=== PATIENT | female | born 1985 | race Caucasian/White ===

== ENCOUNTER 2016-11-13 15:36 | Inpatient (IN) | payer BC, MEDICAID ==
[~2016-11-13] VITALS: Ht 175.3 cm; Wt 122.3 kg
[~2016-11-13 15:36] MED LIST: CIPR500T4 PO; CYCL-319 PO; NAPR-260 PO; NAPR-688 PO; OXYC-281 PO
--- NOTE | 2016-11-13 16:07 | TRIAGE ---
OB Triage Datetime Report Generated by CPN: 11/13/2016 16:07 Datetime: 11/13/2016 16:06 EGA: 38.3 Datetime: 11/13/2016 15:40 Assessment Type: Triage Maternal Assessment Level of Consciousness: Fully Conscious DTR's/Clonus: DTRs 2+; No Clonus Headache: Denies Blurred Vision: No Respiratory Effort: Unlabored; Regular Rhythm; Equal Expansion Breath Sounds, Left: Clear and Equal Breath Sounds, Right: Clear and Equal Nausea/Vomiting: Denies RUQ Epigastric Pain: Denies Facial Edema: None Fall Risk Assessment History of Falling: (0) No Secondary Diagnosis: (0) No Ambulatory Aid: (0) Bedrest/Nurse Assist IV Therapy: (0) No Gait: (0) Normal/Bedrest/Immobile Mental Status: (0) Oriented to Own Ability Fall Score: 0 Fall Risk Score Definition: No Risk: No action required Datetime: 11/13/2016 15:30 Time of Arrival: 11/13/2016 15:30 Arrived By: Ambulatory Arrived From: Home Chief Complaint: PT CAME IN C/O SROM AT 1330, STATES CLEAR FLUID Movement: Present Contractions: Denies/Absent Rupture of Membranes: Ruptured Vaginal Discharge: Denies Recent Sexual Intercouse: Denies Abdominal Trauma: Not Applicable Patient Complaints: Other Additional Patient Complaints: NONE Time Provider Notified: 11/13/2016 16:00 Provider Notified: EMERY Initial Plan: JESICA AND CAESAR
[2016-11-13] MEDS ORDERED: LACTATED RINGER'S 1,000 ML IV SCH (17:20)
[2016-11-13] MEDS ORDERED: MISOPROSTOL 200 MCG TAB PR PRN ×2 (17:30→22:30)
[2016-11-13] MEDS ORDERED: OXYTOCIN 30 UNITS/LR 500 ML IV SCH ×4 (17:30→22:30)
[2016-11-13] MEDS ORDERED: AMPICILLIN 2 GM/NS (PMX) 100 ML IV ONE (17:30)
[2016-11-13] MEDS ORDERED: CARBOPROST 250 MCG INJ IM PRN ×2 (17:30→22:30)
[2016-11-13] MEDS ORDERED: LIDOCAINE 1% (MPF) 30 ML INJ INJ PRN ×2 (17:30→22:30)
[2016-11-13] MEDS ORDERED: IBUPROFEN 600 MG TAB PO PRN ×2 (17:30→22:30)
[2016-11-13] MEDS ORDERED: OXYTOCIN 30 UNITS/LR 500 ML IV PRN ×2 (17:30→22:30)
[2016-11-13 17:42] LABS: BASOPHILS % 0.4 % (0.0-2.0); EOSINOPHILS % 0.2 % (0.0-7.0); HEMATOCRIT 36.5 % (37.0-47.0); HEMOGLOBIN 12.5 g/dl (12.0-16.0); LYMPHOCYTES # 1.6 10^3/ul (0.8-2.9); LYMPHOCYTES % 14.9 % (15.0-51.0); MEAN CORPUSCULAR HEMOGLOBIN 29.7 pg (29.0-33.0); MEAN CORPUSCULAR HGB CONC 34.3 g/dl (32.0-37.0); MEAN CORPUSCULAR VOLUME 86.7 fl (82.0-101.0); MEAN PLATELET VOLUME 9.6 fl (7.4-10.4); MONOCYTE # 0.5 10^3/ul (0.3-0.9); MONOCYTES % 5.2 % (0.0-11.0); NEUTROPHIL # 8.4 10^3/ul (1.6-7.5); NEUTROPHILS % 79.3 % (39.0-77.0); PLATELET COUNT 267 10^3/UL (140-440); RED BLOOD COUNT 4.21 10^6/ul (4.20-5.40); RED CELL DISTRIBUTION WIDTH 13.5 % (11.5-14.5); UNCORRECTED WBC 10.6 10^3/ul (4.8-10.8); WHITE BLOOD COUNT 10.6 10^3/ul (4.8-10.8)
[2016-11-13 17:43] LABS: CONDITION 1
[2016-11-13] MEDS ORDERED: PREN-99 PO (17:45)
[2016-11-13 17:48] LABS: INR 0.98
[2016-11-13 17:49] LABS: PARTIAL THROMBOPLASTIN TIME 25.3 Sec (25.0-35.0)
[2016-11-13 17:51] VITALS: BP 119/64; PULSE 91; RESP 18
[2016-11-13 17:53] VITALS: Ht 175.3 cm; Wt 122.3 kg
[2016-11-13] MEDS ORDERED: LACTATED RINGER'S 1,000 ML IV PRN ×2 (18:00→22:00)
--- NOTE | 2016-11-13 18:07 | RADRPT ---
PROCEDURE: US OB. CLINICAL INDICATION: Size and dates , labor pain TECHNIQUE: Multiple sonographic images of the pelvis and gravid uterus were obtained. The images were reviewed on a PACS workstation. COMPARISON: No prior studies are available for comparison. FINDINGS: There is a single viable intrauterine gestation. Cardiac activity is present with 159 beats per min mita. There is a vertex presentation. The placenta is anterior. There is no evidence for an abruption or placenta previa. Measurements were made in order to determine age. The results are as follows: BPD =9.3 cm HC =33.4 cm AC =40.1 cm FL =7.8 cm Estimated gestational age of approximately 38 weeks and 5 days based on ultrasound measurements. Clinical age: 38 weeks and 3 days. The estimated date of delivery is 11/22/16, based on ultrasound measurements. The EFW = 4476 g, >97%, based on LMP age. RPTAT: AA IMPRESSION: Single viable intrauterine gestation of approximately 38 weeks and 5 days based on ultrasound measu rements. .Roverto Elizabeth MD, MD Date Time Electronically viewed and signed by .Roverto Elizabeth MD, on 11/13/2016 18:07 .S/
[2016-11-13 18:36] LABS: BARBITURATES Negative (NEGATIVE); BENZODIAZEPINES Negative (NEGATIVE); CANNABINOIDS Negative (NEGATIVE); COCAINE Negative (NEGATIVE); OPIATES Negative (NEGATIVE)
[2016-11-13] MEDS ORDERED: AMPICILLIN 1 GM/NS (PMX) 50 ML IV SCH (21:30)
--- NOTE | 2016-11-13 21:52 | HP ---
Date/Time of Note Date/Time of Note DATE: 11/13/16 TIME: 21:37 OB - History Hx of Present Free Text/Dictation Patient is a 31 years old with IUP at 38 weeks and 3 days with care with Dr. Mosquera presented due to ROM this evening. Has a History of section in prior due to GDM A2 and macrosomia at [facility] in last in 2009. She requests TOLAC. She denies any medical complications in current as well as GDM. Per patient her course was unremarkable. Her GBS status is unknown. She does not feel the baby larger in current . Her records unavailable. Her op report of prior section reviewed and showed LTCS : 4 Para: 2 Spontaneous : 1 Care: Other (No records available at this time.) Obstetrical Complications: None (Patient denies any complications in current ) Other Concerns: Obesity Past Family/Social History * Past Medical, Surgical, Family and Obstetric Histories reviewed from chart. OB Admission Exam Vital Signs Vital Signs Vital Signs Date Time Temp Pulse Resp B/P Pulse Ox O2 Delivery O2 Flow Rate FiO2 11/13/16 17:51 98.2 91 18 119/64 Room Air Physical Exam HEENT: WNL Heart: Rhythm Normal Lungs: Clear Abdomen: WNL Extremities: Normal Cervical Dilatation: 2cm Effacement: 75% Station: -1 Membranes: Ruptured Amniotic Fluid: Clear Heart Rate: 130's Accelerations: Accelerations Present Decelerations: No Decelerations Varibility: Moderate Contractions on Admission: 6-10 Minutes Apart Intensity: Moderate Last 72 hours Lab Results CBC & BMP 11/13/16 15:50 Hemoglobin A1C Test 11/13/16 15:50 Hemoglobin A1c 6.7 H OB Assessment/Plan Reason for admission: active labor Other Assessment: IUP at 38 weeks and 3 days History of prior section. LTCS , documented scar noted in reviewing operative report at [place] pre [facility] section due to macrosomia due to GDM A2 Denies any history of GDM in current EFW: 2072-9467 grams by vanna Consider ultrasound for EFW. discussed with the patient about section in case of failure to progress, suspected macrosomia noted in us, or any other obstetrical indications She understands that will not consider labor augmentation in case of Dystocia or failure to progress if TOLAC criteria met Discussed about risks of TOLAC including risk for uterine rupture and risk for maternal and morbidity and mortality in this case, as well as risk for Emergency section which even does not eliminat the risk of damage to the fetus and mother including risk for CP and long and short term morbidity and mortality as well as risk for Blood transfusion in case of uterine rupture and transfusion risks as well discussed with the patient. Obtain labs Keep patient NPO Follow up with ultrasound GBS prophylaxis This case discussed with upcoming laborist , Dr. Hurley for follow up of above studies including ultraound and reevaluate for candidacy for TOLAC. URIEL SIFUENTES MD Nov 13, 2016 21:51
[2016-11-13] MEDS ORDERED: FENTAnyl 2MCG/ML-ROPIV 0.2% 100 ML ONE (21:54)
[2016-11-13] MEDS: LACTATED RINGER'S 1,000 ML IV SCH (22:12)
[2016-11-13] MEDS ORDERED: METHYLERGONOVINE 0.2 MG INJ IM PRN (22:30)
[2016-11-14] MEDS ORDERED: TERBUTALINE 1 ML ONE (00:20)
[2016-11-14] MEDS ORDERED: TERBUTALINE 1 MG/ML INJ SC ONE (00:30)
[2016-11-14] MEDS ORDERED: AMPICILLIN 1 GM/NS (PMX) 50 ML IV SCH (01:30)
[2016-11-14] MEDS: LACTATED RINGER'S 1,000 ML IV SCH (02:24)
[2016-11-14] MEDS ORDERED: OXYTOCIN 30 UNITS/LR 500 ML IV SCH (03:20)
[2016-11-14] MEDS ORDERED: LACTATED RINGER'S 1,000 ML IV* SCH (03:20)
--- NOTE | 2016-11-14 03:29 | LDN ---
Date/Time of Note Date/Time of Note DATE: 11/14/16 TIME: 03:26 Delivery Summary of a viable baby boy weighing 4175 grams or 9# 3 oz, 20" long and with Apgars of 9/9. Placenta Delivered: Spontaneously, Intact & Complete Meconium: none Perineum intact?: No Perineal laceration: 1 Perineal laceration repair: First degree laceration repaired with 2-0 chromic. Anesthesia type: Epidural Estimated blood loss: 350 Sponge & Needle done & correct: Yes All needle counts correct: Yes Any foreign bodies felt in the: No (vagina) Problems: Infant Delivery Information Sex Sex: male Apgars 1 Minute: 9 5 Minute: 9 Suctioning Nose & mouth suctioned at meera: No Delee suction performed: No Umbilical Cord Umbilical cord with: 3 Vessels Cord presentations: no nuchal cord Cord Blood was obtained: Yes Mother & Baby Disposition Disposition Mom & Baby to Maternity; Good: Yes Baby to NICU: No PRANEETH WATERS MD Nov 14, 2016 03:29
[2016-11-14] MEDS ORDERED: METHYLERGONOVINE 0.2 MG INJ IM PRN (03:30)
[2016-11-14] MEDS ORDERED: OXYTOCIN 30 UNITS/LR 500 ML IV PRN (03:30)
[2016-11-14] MEDS ORDERED: MISOPROSTOL 200 MCG TAB PR PRN (03:30)
[2016-11-14] MEDS ORDERED: BENZOCAINE 20% 56 ML SPRAY TOP PRN (03:30)
[2016-11-14] MEDS ORDERED: CARBOPROST 250 MCG INJ IM PRN (03:30)
[2016-11-14] MEDS ORDERED: LANOLIN 7 GM TUBE TOP PRN (03:30)
[2016-11-14] MEDS ORDERED: OXYCODONE/ASPIRIN (4.88/325) TAB PO PRN (03:30)
[2016-11-14 05:15] VITALS: BP 127/82; PULSE 101; RESP 18
--- NOTE | 2016-11-14 05:18 | DELSUM ---
Delivery Summary A-C Datetime Report Generated by CPN: 11/14/2016 05:18 DELIVERY PERSONNEL Credit Collections Clerk: Luci Leija MATERNAL INFORMATION Delivery Anesthesia: Epidural Medications in Delivery: 30 UNITS PITOCIN IN LR 500ML BOLUS Placenta Cultured: No Maternal Complications: None RN Comments: EBL-350ML LABOR SUMMARY EDC: 11/24/2016 00:00 No. Babies in Womb: 1 Attempted: Yes Labor Anesthesia: Epidural LABOR INFORMATION Reason for Induction: Not Applicable Onset of Labor: 11/13/2016 13:30 Complete Dilatation: 11/14/2016 02:31 Oxytocin: N/A Group B Beta Strep: Done, Result Unknown Antibiotics # of Doses: 3 Antibiotics Time of Last Dose: 11/14/16 @0127 Steroids Given: None Reason Steroids Not Administered: Not Applicable MEMBRANES Membranes Rupture Method: Spontaneous Rupture of Membranes: 11/13/2016 13:30 Length of Rupture (hr): 13.23 Amniotic Fluid Color: Clear Amniotic Fluid Amount: Moderate Amniotic Fluid Odor: Normal STAGES OF LABOR Stage 1 hr: 13 Stage 1 min: 1 Stage 2 hr: 0 Stage 2 min: 13 Stage 3 hr: 0 Stage 3 min: 10 Total Time in Labor hr: 13 Total Time in Labor min: 24 VAGINAL DELIVERY Episiotomy: None Laceration Extension: First Degree Laceration Type: Perineal Laceration Repair: Yes Initial Vag Sponge Count: 10 Final Vag Sponge Count: 10 Initial Vag Sharps Count: 1+1 Final Vag Sharps Count: 2 Sponge Count Correct: Yes Sharps Count Correct: Yes Count Comment: +10RAYTEC BABY A INFORMATION Infant Delivery Date/Time: 11/14/2016 02:44 Method of Delivery: Vaginal Method of Delivery: Vaginal Born in Route : No : Successful Forceps: N/A Vacuum Extraction: N/A Shoulder Dystocia : No SHOULDER DYSTOCIA BABY A Infant Delivery Date/Time: 11/14/2016 02:44 PRESENTATION/POSITION BABY A Presentation: Cephalic Presentation: Cephalic Presentation: Cephalic Cephalic Presentation: Vertex Breech Presentation: N/A PLACENTA INFORMATION BABY A Placenta Delivery Time : 11/14/2016 02:54 Placenta Method of Delivery: Spontaneous Placenta Status: Delivered SCORES BABY A Heart Rate 1 min: >100 bpm Resp Effort 1 min: Good Cry Reflex Irritability 1 min: Cough/Sneeze/Pulls Away Muscle Tone 1 min: Active Motion Color 1 min: Body [place], Extremit Blue Resuscitation Effort 1 min: Tactile Stimulation SCORE 1 MIN: 9 Heart Rate 5 min: >100 bpm Resp Effort 5 min: Good Cry Reflex Irritability 5 min: Cough/Sneeze/Pulls Away Muscle Tone 5 min: Active Motion Color 5 min: Body [place], Extremit Blue Resuscitation Effort 5 min: N/A SCORE 5 MIN: 9 INFANT INFORMATION BABY A Gestational Age at Delivery: 38.4 Gestational Status: Early Term- 37- 38.6 Weeks Infant Outcome : Liveborn Condition : Stable Infant Sex: Male Sex: Male IDENTIFICATION/MEDS BABY A ID Band Number: [id number] ID Band Location: Right Leg; Left Arm Sensor Applied: Yes Sensor Number: [id number] Sensor Location : Cord Clamp Vitamin K Given : Not Given Erythromycin Given: Not Given WEIGHT/LENGTH BABY A Infant Birthweight (gm): 4175 Infant Weight (lb): 9 Weight (oz): 3 Length (in): 20.00 Length (cm): 50.80 CORD INFORMATION BABY A No. Cord Vessels: 3 Nuchal Cord : N/A Cord Blood Taken: Yes Banking/Donate Info: N/A Infant Suction: Mouth; Nose ASSESSMENT BABY A Complications: Multiple Variable Decels Physical Findings at Delivery: Within Normal Limits Physical Findings- Other: X1 VOID Infant Respirations: Appears Normal Stock Shaper/ALS Called : No Care By: Tammy DIEGO RN Transferred To: Remains with Mother
--- NOTE | 2016-11-14 05:19 | OPRPT ---
Intraop Record Datetime Report Generated by CPN: 11/14/2016 05:19 Datetime: 11/13/2016 16:06 Food Allergies/Reactions: NONE Latex Allergies/Reactions: No Latex Allergies Datetime: 09/07/2016 09:42 Drug Allergies/Reactions: erythromycin base/MO/HIVES (04/16/2015); sulfamethoxazole/MO/HIVES (04/16); trimethoprim/MO/HIVES (04/16/2015)
--- NOTE | 2016-11-14 05:19 | DELSUM ---
Delivery Summary A-C Datetime Report Generated by CPN: 11/14/2016 05:19 DELIVERY PERSONNEL Warehouse Supervisor [address]Rd Shift: Luci Leija MATERNAL INFORMATION Delivery Anesthesia: Epidural Medications in Delivery: 30 UNITS PITOCIN IN LR 500ML BOLUS Placenta Cultured: No Maternal Complications: None RN Comments: EBL-350ML LABOR SUMMARY EDC: 11/24/2016 00:00 No. Babies in Womb: 1 Attempted: Yes Labor Anesthesia: Epidural LABOR INFORMATION Reason for Induction: Not Applicable Onset of Labor: 11/13/2016 13:30 Complete Dilatation: 11/14/2016 02:31 Oxytocin: N/A Group B Beta Strep: Done, Result Unknown Antibiotics # of Doses: 3 Antibiotics Time of Last Dose: 11/14/16 @0127 Steroids Given: None Reason Steroids Not Administered: Not Applicable MEMBRANES Membranes Rupture Method: Spontaneous Rupture of Membranes: 11/13/2016 13:30 Length of Rupture (hr): 13.23 Amniotic Fluid Color: Clear Amniotic Fluid Amount: Moderate Amniotic Fluid Odor: Normal STAGES OF LABOR Stage 1 hr: 13 Stage 1 min: 1 Stage 2 hr: 0 Stage 2 min: 13 Stage 3 hr: 0 Stage 3 min: 10 Total Time in Labor hr: 13 Total Time in Labor min: 24 VAGINAL DELIVERY Episiotomy: None Laceration Extension: First Degree Laceration Type: Perineal Laceration Repair: Yes Initial Vag Sponge Count: 10 Final Vag Sponge Count: 10 Initial Vag Sharps Count: 1+1 Final Vag Sharps Count: 2 Sponge Count Correct: Yes Sharps Count Correct: Yes Count Comment: +10RAYTEC BABY A INFORMATION Infant Delivery Date/Time: 11/14/2016 02:44 Method of Delivery: Vaginal Method of Delivery: Vaginal Born in Route : No : Successful Forceps: N/A Vacuum Extraction: N/A Shoulder Dystocia : No SHOULDER DYSTOCIA BABY A Infant Delivery Date/Time: 11/14/2016 02:44 PRESENTATION/POSITION BABY A Presentation: Cephalic Presentation: Cephalic Presentation: Cephalic Cephalic Presentation: Vertex Breech Presentation: N/A PLACENTA INFORMATION BABY A Placenta Delivery Time : 11/14/2016 02:54 Placenta Method of Delivery: Spontaneous Placenta Status: Delivered SCORES BABY A Heart Rate 1 min: >100 bpm Resp Effort 1 min: Good Cry Reflex Irritability 1 min: Cough/Sneeze/Pulls Away Muscle Tone 1 min: Active Motion Color 1 min: Body [place], Extremit Blue Resuscitation Effort 1 min: Tactile Stimulation SCORE 1 MIN: 9 Heart Rate 5 min: >100 bpm Resp Effort 5 min: Good Cry Reflex Irritability 5 min: Cough/Sneeze/Pulls Away Muscle Tone 5 min: Active Motion Color 5 min: Body [place], Extremit Blue Resuscitation Effort 5 min: N/A SCORE 5 MIN: 9 INFANT INFORMATION BABY A Gestational Age at Delivery: 38.4 Gestational Status: Early Term- 37- 38.6 Weeks Infant Outcome : Liveborn Condition : Stable Infant Sex: Male Sex: Male IDENTIFICATION/MEDS BABY A ID Band Number: [id number] ID Band Location: Right Leg; Left Arm Sensor Applied: Yes Sensor Number: [id number] Sensor Location : Cord Clamp Vitamin K Given : Not Given Erythromycin Given: Not Given WEIGHT/LENGTH BABY A Infant Birthweight (gm): 4175 Infant Weight (lb): 9 Weight (oz): 3 Length (in): 20.00 Length (cm): 50.80 CORD INFORMATION BABY A No. Cord Vessels: 3 Nuchal Cord : N/A Cord Blood Taken: Yes Banking/Donate Info: N/A Infant Suction: Mouth; Nose ASSESSMENT BABY A Complications: Multiple Variable Decels Physical Findings at Delivery: Within Normal Limits Physical Findings- Other: X1 VOID Infant Respirations: Appears Normal Adult School Teacher/ALS Called : No Care By: Tammy DIEGO RN Transferred To: Remains with Mother
[2016-11-14] MEDS: IBUPROFEN 600 MG TAB PO SCH ×3 (05:40→17:54)
[2016-11-14 05:45] VITALS: BP 126/75; PULSE 98; RESP 18
[2016-11-14 08:30] VITALS: BP 126/77; PULSE 98; RESP 18
[2016-11-14 12:30] VITALS: BP 122/75; PULSE 95; RESP 18
[2016-11-14 16:43] VITALS: BP 118/71; PULSE 100; RESP 18
[2016-11-14 19:40] VITALS: BP 107/67; PULSE 94; RESP 20
[2016-11-15] MEDS: IBUPROFEN 600 MG TAB PO SCH ×4 (00:01→17:45)
[2016-11-15 04:00] VITALS: BP 108/73; PULSE 86; RESP 19
[2016-11-15 08:29] VITALS: BP 102/56; PULSE 94; RESP 17
[2016-11-15 08:30] LABS: BASOPHIL # 0.1 10^3/ul (0.0-0.1); BASOPHILS % 0.4 % (0.0-2.0); CONDITION 1; EOSINOPHILS % 0.3 % (0.0-7.0); HEMATOCRIT 29.2 % (37.0-47.0); LYMPHOCYTES # 1.4 10^3/ul (0.8-2.9); LYMPHOCYTES % 10.6 % (15.0-51.0); MEAN CORPUSCULAR HEMOGLOBIN 30.1 pg (29.0-33.0); MEAN CORPUSCULAR HGB CONC 34.3 g/dl (32.0-37.0); MEAN CORPUSCULAR VOLUME 87.9 fl (82.0-101.0); MEAN PLATELET VOLUME 9.4 fl (7.4-10.4); MONOCYTE # 0.7 10^3/ul (0.3-0.9); MONOCYTES % 5.2 % (0.0-11.0); NEUTROPHIL # 11.1 10^3/ul (1.6-7.5); NEUTROPHILS % 83.5 % (39.0-77.0); PLATELET COUNT 228 10^3/UL (140-440); RED BLOOD COUNT 3.33 10^6/ul (4.20-5.40); RED CELL DISTRIBUTION WIDTH 13.8 % (11.5-14.5); UNCORRECTED WBC 13.3 10^3/ul (4.8-10.8); WHITE BLOOD COUNT 13.3 10^3/ul (4.8-10.8)
[2016-11-15 12:36] LABS: RUBELLA ANTIBODY - IGG 3.36
--- NOTE | 2016-11-15 14:45 | PN ---
Date/Time of Note Date/Time of Note DATE: 11/15/16 TIME: 14:33 OB Subjective Subjective Subjective Post day 1 Patient is doing well, Ambulatory She is afebrile Abdomen is soft , Fundus is firm Moderate amount of lochia Breasts are soft, Nipples are intact No calf tenderness. Perineum is healing well. Breast feeding the new born. Laboratory Tests Test 11/15/16 06:53 Basophils # 0.110^3/ul Basophils % 0.4% Eosinophils # 0.010^3/ul Eosinophils % 0.3% Hematocrit 29.2% Hemoglobin 10.0g/dl Lymphocytes # 1.410^3/ul Lymphocytes % 10.6% Mean Corpuscular Hemoglobin 30.1pg Mean Corpuscular Hemoglobin Concent 34.3g/dl Mean Corpuscular Volume 87.9fl Mean Platelet Volume 9.4fl Monocytes # 0.710^3/ul Monocytes % 5.2% Neutrophils # 11.110^3/ul Neutrophils % 83.5% Nucleated Red Blood Cells # 0.010^3/ul Nucleated Red Blood Cells % 0.0/100WBC Platelet Count 64575^3/UL Red Blood Count 3.3310^6/ul Red Cell Distribution Width 13.8% White Blood Count 13.310^3/ul Current Medications Medications (Trade) Dose Ordered Sig/Marissa Route PRN Reason Start Time Stop Time Status Last Admin Dose Admin Lactated Ringer's 1,000 ml @ 125 mls/hr Q8H IV 11/13/16 17:20 11/13/16 21:57 DC 11/13/16 18:30 Ampicillin 100 ml @ 100 mls/hr ONCE ONCE IV 11/13/16 17:30 11/13/16 21:57 DC 11/13/16 18:37 Ampicillin (Ampicillin 1 Gm/ NS (Pmx)) 50 ml @ 100 mls/hr Q4H IV 11/13/16 21:30 11/13/16 21:58 DC 11/13/16 21:28 Lidocaine 30 ml 30 ml ONCE PRN INJ EPISIOTOMY/TEARING 11/13/16 17:30 11/13/16 21:58 DC Oxytocin/Lactated Ringer's 500 ml @ 125 mls/hr ONCE -MAY REPEAT X1 IV 11/13/16 17:30 11/13/16 21:58 DC Oxytocin/Lactated Ringer's 500 ml @ 125 mls/hr ONCE IV 11/13/16 17:30 11/13/16 21:58 DC Ibuprofen 600 mg 600 mg ONCE PRN PO Mild Pain (Pain Score 1-3) 11/13/16 17:30 11/13/16 21:58 DC Lactated Ringer's 1,000 ml @ 2,000 mls/hr Q30M PRN IV PRE-EPIDURAL BOLUS 11/13/16 18:00 11/13/16 21:57 DC 11/13/16 21:28 Oxytocin/Lactated Ringer's 500 ml @ 0 mls/hr ONCE PRN IV For Hemorrhage Management 11/13/16 17:30 11/13/16 21:57 DC Carboprost Tromethamine (Hemabate) 250 mcg ONCE PRN IM VAGINAL BLEEDING 11/13/16 17:30 11/13/16 21:57 DC Misoprostol 1000 mcg 1,000 mcg ONCE PRN NV VAGINAL BLEEDING 11/13/16 17:30 11/13/16 21:57 DC Fentanyl/ Ropivacaine 100 ml @ ud STK-MED ONCE .ROUTE 11/13/16 21:54 11/13/16 21:55 DC Lactated Ringer's (Lr) 1,000 ml @ 125 mls/hr Q8H IV 11/13/16 22:12 11/14/16 03:25 DC 11/14/16 02:24 Lidocaine 30 ml 30 ml ONCE PRN INJ EPISIOTOMY/TEARING 11/13/16 22:30 11/14/16 03:25 DC Oxytocin/Lactated Ringer's 500 ml @ 125 mls/hr ONCE -MAY REPEAT X1 IV 11/13/16 22:30 11/14/16 03:25 DC 11/14/16 02:54 Oxytocin/Lactated Ringer's 500 ml @ 125 mls/hr ONCE IV 11/13/16 22:30 11/14/16 03:25 DC 11/14/16 03:16 Ibuprofen 600 mg 600 mg ONCE PRN PO Mild Pain (Pain Score 1-3) 11/13/16 22:30 11/14/16 03:25 DC Lactated Ringer's 1,000 ml @ 2,000 mls/hr Q30M PRN IV PRE-EPIDURAL BOLUS 11/13/16 22:00 11/14/16 03:25 DC Oxytocin/Lactated Ringer's 500 ml @ 0 mls/hr ONCE PRN IV For Hemorrhage Management 11/13/16 22:30 11/14/16 03:25 DC Methylergonovine Maleate (Methergine) 0.2 mg ONCE PRN IM VAGINAL BLEEDING 11/13/16 22:30 11/14/16 03:25 DC Carboprost Tromethamine (Hemabate) 250 mcg ONCE PRN IM VAGINAL BLEEDING 11/13/16 22:30 11/14/16 03:25 DC Misoprostol 1000 mcg 1,000 mcg ONCE PRN NV VAGINAL BLEEDING 11/13/16 22:30 11/14/16 03:25 DC Ampicillin (Ampicillin 1 Gm/ NS (Pmx)) 50 ml @ 100 mls/hr Q4H IV 11/14/16 01:30 11/14/16 03:25 DC 11/14/16 01:27 Terbutaline Sulfate 0.25 mg 0.25 mg ONCE ONCE SC 11/14/16 00:30 11/14/16 00:31 DC 11/14/16 00:09 Terbutaline Sulfate 1 ml @ ud STK-MED ONCE .ROUTE 11/14/16 00:20 11/14/16 00:21 DC Oxytocin/Lactated Ringer's 500 ml @ 125 mls/hr Q4H IV 11/14/16 03:20 11/14/16 07:19 DC 11/14/16 07:30 Lactated Ringer's (Lr) 1,000 ml @ 125 mls/hr Q8H IV* 11/14/16 03:20 11/14/16 17:28 DC Ibuprofen (Motrin) 600 mg Q6 PO 11/14/16 06:00 11/15/16 12:49 Oxycodone/Aspirin (Percodan) 1 tab Q3H PRN PO PAIN LEVEL 1-5 11/14/16 03:30 Benzocaine (Dermoplast [place]) 1 spray BEDSIDE MEDICATION PRN TOP HEMORRHOID/EPISIOTMY PAIN 11/14/16 03:30 11/14/16 05:40 Lanolin ([id number]) 1 applic BEDSIDE MEDICATION PRN TOP BEDSIDE FOR HEIKE TO NIPPLES 11/14/16 03:30 11/14/16 05:40 Diphtheria/ Tetanus/Acell Pertussis 0.5 ml 0.5 ml ONCE ONCE IM* 11/16/16 09:00 11/16/16 09:01 Oxytocin/Lactated Ringer's 500 ml @ 0 mls/hr ONCE PRN IV For Hemorrhage Management 11/14/16 03:30 Methylergonovine Maleate (Methergine) 0.2 mg ONCE PRN IM VAGINAL BLEEDING 11/14/16 03:30 Carboprost Tromethamine (Hemabate) 250 mcg ONCE PRN IM VAGINAL BLEEDING 11/14/16 03:30 Misoprostol (Cytotec) 1,000 mcg ONCE PRN NV VAGINAL BLEEDING 11/14/16 03:30 KOKI JOHNSON MD Nov 15, 2016 14:44
[2016-11-15 16:00] VITALS: BP 116/77; PULSE 90; RESP 16
[2016-11-15 19:30] VITALS: BP 112/67; PULSE 96; RESP 19
[2016-11-16] MEDS: IBUPROFEN 600 MG TAB PO SCH ×4 (00:13→17:54)
[2016-11-16 04:00] VITALS: BP 100/60; PULSE 70; RESP 20
[2016-11-16 08:00] VITALS: BP 115/67; PULSE 70; RESP 18
[2016-11-16] MEDS ORDERED: DIPHTH/TET/ACEL PERTUSS (ADULT) 0.5 ML VIAL IM* ONE (09:00)
--- NOTE | 2016-11-16 12:01 | PN ---
Date/Time of Note Date/Time of Note DATE: 11/16/16 TIME: 11:49 OB Subjective Subjective Subjective Denies any complaint, Had a history of depression with suicidal ideation in the past and hospitalized. Per patient she has been off of medication for a long time. Breast feeding, vaginal bleeding in the amount of menses. Has a therapist currently,. She denies any SI/ HI or any other symptoms. She has all resources and states that she knows where to call if she has any symptoms, She states that she is planning to call her therapist in order to make an appt to see her after she discharge from home. Aunt has been very supportive. States that her prior suicidal attempt was about 2 years ago and that was due to her mother's situation. since her mother was abusing drugs and was not arround. She had extensive therapy after that. Breast feeding and bottle feeding. currently denies any depressive symptoms. Declined FLu and Tdap. Vaginal bleeding in the amount of menses. OB Objective Objective Objective GA: A&O, NAD Lungs. CTA bilaterally CV: RRR Abdomen:Soft, not tender. fundus is firm Extremities: + bilateral lower non pitting edema. Breasts: non engorged. non tender. Current Medications Medications (Trade) Dose Ordered Sig/Marissa Route PRN Reason Start Time Stop Time Status Last Admin Dose Admin Lactated Ringer's 1,000 ml @ 125 mls/hr Q8H IV 11/13/16 17:20 11/13/16 21:57 DC 11/13/16 18:30 Ampicillin 100 ml @ 100 mls/hr ONCE ONCE IV 11/13/16 17:30 11/13/16 21:57 DC 11/13/16 18:37 Ampicillin (Ampicillin 1 Gm/ NS (Pmx)) 50 ml @ 100 mls/hr Q4H IV 11/13/16 21:30 11/13/16 21:58 DC 11/13/16 21:28 Lidocaine 30 ml 30 ml ONCE PRN INJ EPISIOTOMY/TEARING 11/13/16 17:30 11/13/16 21:58 DC Oxytocin/Lactated Ringer's 500 ml @ 125 mls/hr ONCE -MAY REPEAT X1 IV 11/13/16 17:30 11/13/16 21:58 DC Oxytocin/Lactated Ringer's 500 ml @ 125 mls/hr ONCE IV 11/13/16 17:30 11/13/16 21:58 DC Ibuprofen 600 mg 600 mg ONCE PRN PO Mild Pain (Pain Score 1-3) 11/13/16 17:30 11/13/16 21:58 DC Lactated Ringer's 1,000 ml @ 2,000 mls/hr Q30M PRN IV PRE-EPIDURAL BOLUS 11/13/16 18:00 11/13/16 21:57 DC 11/13/16 21:28 Oxytocin/Lactated Ringer's 500 ml @ 0 mls/hr ONCE PRN IV For Hemorrhage Management 11/13/16 17:30 11/13/16 21:57 DC Carboprost Tromethamine (Hemabate) 250 mcg ONCE PRN IM VAGINAL BLEEDING 11/13/16 17:30 11/13/16 21:57 DC Misoprostol 1000 mcg 1,000 mcg ONCE PRN DE VAGINAL BLEEDING 11/13/16 17:30 11/13/16 21:57 DC Fentanyl/ Ropivacaine 100 ml @ ud STK-MED ONCE .ROUTE 11/13/16 21:54 11/13/16 21:55 DC Lactated Ringer's (Lr) 1,000 ml @ 125 mls/hr Q8H IV 11/13/16 22:12 11/14/16 03:25 DC 11/14/16 02:24 Lidocaine 30 ml 30 ml ONCE PRN INJ EPISIOTOMY/TEARING 11/13/16 22:30 11/14/16 03:25 DC Oxytocin/Lactated Ringer's 500 ml @ 125 mls/hr ONCE -MAY REPEAT X1 IV 11/13/16 22:30 11/14/16 03:25 DC 11/14/16 02:54 Oxytocin/Lactated Ringer's 500 ml @ 125 mls/hr ONCE IV 11/13/16 22:30 11/14/16 03:25 DC 11/14/16 03:16 Ibuprofen 600 mg 600 mg ONCE PRN PO Mild Pain (Pain Score 1-3) 11/13/16 22:30 11/14/16 03:25 DC Lactated Ringer's 1,000 ml @ 2,000 mls/hr Q30M PRN IV PRE-EPIDURAL BOLUS 11/13/16 22:00 11/14/16 03:25 DC Oxytocin/Lactated Ringer's 500 ml @ 0 mls/hr ONCE PRN IV For Hemorrhage Management 11/13/16 22:30 11/14/16 03:25 DC Methylergonovine Maleate (Methergine) 0.2 mg ONCE PRN IM VAGINAL BLEEDING 11/13/16 22:30 11/14/16 03:25 DC Carboprost Tromethamine (Hemabate) 250 mcg ONCE PRN IM VAGINAL BLEEDING 11/13/16 22:30 11/14/16 03:25 DC Misoprostol 1000 mcg 1,000 mcg ONCE PRN DE VAGINAL BLEEDING 11/13/16 22:30 11/14/16 03:25 DC Ampicillin (Ampicillin 1 Gm/ NS (Pmx)) 50 ml @ 100 mls/hr Q4H IV 11/14/16 01:30 11/14/16 03:25 DC 11/14/16 01:27 Terbutaline Sulfate 0.25 mg 0.25 mg ONCE ONCE SC 11/14/16 00:30 11/14/16 00:31 DC 11/14/16 00:09 [facility] .[facility] 11/14/16 00:20 11/14/16 00:21 DC Oxytocin/Lactated Ringer's 500 ml @ 125 mls/hr Q4H IV 11/14/16 03:20 11/14/16 07:19 DC 11/14/16 07:30 Lactated Ringer's (Lr) 1,000 ml @ 125 mls/hr Q8H IV* 11/14/16 03:20 11/14/16 17:28 DC Ibuprofen (Motrin) 600 mg Q6 PO 11/14/16 06:00 11/16/16 05:33 Oxycodone/Aspirin (Percodan) 1 tab Q3H PRN PO PAIN LEVEL 1-5 11/14/16 03:30 Benzocaine (Dermoplast [place]) 1 spray BEDSIDE MEDICATION PRN TOP HEMORRHOID/EPISIOTMY PAIN 11/14/16 03:30 11/14/16 05:40 Lanolin ([id number]-[id number]) 1 applic BEDSIDE MEDICATION PRN TOP BEDSIDE FOR HEIKE TO NIPPLES 11/14/16 03:30 11/14/16 05:40 Diphtheria/ Tetanus/Acell Pertussis 0.5 ml 0.5 ml ONCE ONCE IM* 11/16/16 09:00 11/16/16 09:01 DC Oxytocin/Lactated Ringer's 500 ml @ 0 mls/hr ONCE PRN IV For Hemorrhage Management 11/14/16 03:30 Methylergonovine Maleate (Methergine) 0.2 mg ONCE PRN IM VAGINAL BLEEDING 11/14/16 03:30 Carboprost Tromethamine (Hemabate) 250 mcg ONCE PRN IM VAGINAL BLEEDING 11/14/16 03:30 Misoprostol (Cytotec) 1,000 mcg ONCE PRN DE VAGINAL BLEEDING 11/14/16 03:30 OB Assessment/Plan Other plan: DC home Follow up at 6 weeks for post check Depression precaution. She received all the information about depression hot line and where to call or to go Follow up NGA after discharged with her therapist and pscyiatrist URIEL SIFUENTES MD Nov 16, 2016 12:00
--- NOTE | 2016-11-16 12:06 | PD.PPDC ---
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 Hererra Paydafter Condition Patient Condition: Good Diet Diet: Resume Regular Diet Activity/Restrictions Activity: Normal Activity Restrictions: Nothing in the Vagina No [place] No Tampons, douche Wound/Drain Care Instructions Additional Instructions: Follow up in 2 and 6 weeks with her OBGYN, Dr.l herrera for depression assessment follow up NGA after discharge from hospital with therapist Please provide all the information packet for post depression and suicidal hot line Follow-up Follow-up with Physician: 2, 6, Week/Weeks Return to clinic for AURIST Instructions: Fever greater than 101 Chills Worsening abdominal pain Excessive Vaginal Bleeding More than 2 pads per hour Unable to tolerate diet OB Instructions: Breast Tenderness Depression Blurried Vision Headache URIEL SIFUENTES MD Nov 16, 2016 12:06
[2016-11-16] MEDS ORDERED: IBUP200C PO (12:08)
[2016-11-16] MEDS ORDERED: LANO28CR TOP (12:08)
--- NOTE | 2016-11-16 12:22 | DS ---
Date/Time of Note Date/Time of Note DATE: 11/16/16 TIME: 12:11 Discharge Summary Admission/Discharge Info Admit Date/Time Nov 13, 2016 at 16:00 Discharge Date/Time Nov 1508/2016 at 12: 11 PM Final Diagnosis S/p TOLAC History of section x 1 IUP at 38 + weeks SROM early labor Desired to Try TOLAC. Counseled about the risks and benefits History of depression. resolved and stable. Consults None Procedures TOLAC Hx of Present Illness 31 years old G P female with at 38 +weeks with care with Dr. Boykin presented after SROM. she had a history of section x 1 and desired to proceed with TOLAC. she was counseled about the risks and benfits. She delivered a viable term baby with no complications. Her post op course was also non complicated. She had history of Mj use in the past at age of 16. Denied using during / her urine drug screen was negative. she was cleared by healthcare social worker. Had also a history of depression in the past about 2 years ago with suicidal attempt. She denies any depression currently. Has been assessed by healthcare social worker by SBQ-R assessment scale and scored 7 that is normal for adult population. She has all the available resources and understands the risk for post depression' Plans to contact her therpist after DC home and set up a follow up appt NGA on PPD #2 she was noted to be stable enough to go home. She was ambulating, tolerated regular diet. Breast feeding, vaginal bleeding minimal and vitals were stable Hospital Course Non complicated Home Meds Active Scripts Ibuprofen* (Ibuprofen*) 200 Mg Capsule, 600 MG PO Q6, #60 CAP 1 Refill Prov:URIEL SIFUENTES MD 11/16/16 Lanolin* (Brm-V-Euktwo*) 28 Gm Cream..g., 1 APPLIC TOP BEDSIDE MEDICATION Y for BEDSIDE FOR HEIKE TO NIPPLES for 30 Days, #3 TUB 2 Refills Prov:URIEL SIFUENTES MD 11/16/16 Reported Medications Vit #76/Iron,Carb/FA (Pnv 29-1 Tablet) 1 Each Tablet, 1 EACH PO DAILY, TAB 11/13/16 Copies To: CC: MU BOYKIN MD, MARYAM MD Nov 16, 2016 12:22
[2016-11-16 16:12] VITALS: BP 118/77; PULSE 83; RESP 18
== END 2016-11-16 18:26 | disposition home or self-care (01) | DRG 775 ==
LOC: OBT 15:36 → L-D 15:37 → OBT 16:00 → L-D 16:00 → PP1 11-14 05:10
PROVIDERS: ADMIT Obstetrics & Gynecology; ATTEND Obstetrics & Gynecology
PROC: 10E0XZZ Delivery of Products of Conception, External Approach (ICD-10-PCS; principal; 2016-11-14)
PROC: 0HQ9XZZ Repair Perineum Skin, External Approach (ICD-10-PCS; 2016-11-14)
DX: O76 Abnormality in fetal heart rate and rhythm complicating labor and delivery (principal); O70.0 First degree perineal laceration during delivery; Z3A.38 38 weeks gestation of pregnancy; Z37.0 Single live birth
CPT/HCPCS: 62319; 76815; 80307; 83036; 85025; 85610; 85730; 86592; 86762; 86850; 86900; 86901; 86920; 87340; 90715; G0463; J0290; J2590; J3010; J3105; J7120